=== PATIENT | female | born 1970 | race Caucasian/White ===

== ENCOUNTER 2020-12-04 10:11 | Emergency (ER) | payer OTHER, SELFPAY ==
[2020-12-04 10:24] VITALS: BP 159/91; PULSE 79; RESP 16; TEMP 35.8; O2SAT 96; BMI 28.3
--- NOTE | 2020-12-04 10:41 | ED_ITS ---
HPI - General Adult General Chief complaint: General Medical <MAGDA Dunbar - Last Filed: 12/04/20 11:27> Stated complaint: facial swelling <MAGDA Dunbar - Last Filed: 12/04/20 11:27> Time Seen by Provider: 12/04/20 10:41 <MAGDA Dunbar Last Filed: 12/04/20 11:27> Source: patient <MAGDA Dunbar Last Filed: 12/04/20 11:27> Mode of arrival: ambulatory <MAGDA Dunbar Last Filed: 12/04/20 11:27> Limitations: no limitations <MAGDA Dunbar Last Filed: 12/04/20 11:27> History of Present Illness HPI narrative: 50 y/o female presenting with left lower dental pain and facial swelling that started 2 days ago. She was seen by her dentist yesterday. She states she had x-rays done that did not show any infection. She was started on Amoxicillin and told to come back to the dental office in 1 week. She took 2 doses of her Amoxicillin and feels that the left jaw swelling is worsened today. She is able to eat and drink. She denies throat swelling or difficulty swallowing. No fevers at home. <MAGDA Dunbar - Last Filed: 12/04/20 11:27> MD complaint: dental pain <MAGDA Dunbar - Last Filed: 12/04/20 11:27> Onset (ago): day(s) (2) <MAGDA Dunbar - Last Filed: 12/04/20 11:27> Location: face <MAGDA Dunbar Last Filed: 12/04/20 11:27> Radiation: other (left ear) <MAGDA Dunbar Last Filed: 12/04/20 11:27> Severity: moderate <MAGDA Dunbar Last Filed: 12/04/20 11:27> Severity scale (1-10): 6 <MAGDA Dunbar Last Filed: 12/04/20 11:27> Quality: aching <MAGDA Dunbar Last Filed: 12/04/20 11:27> Pain Consistency: constant <MAGDA Dunbar Last Filed: 12/04/20 11:27> Relieving factors: cold therapy and medication <MAGDA Dunbar Last Filed: 12/04/20 11:27> Exacerbating factors: eating <MAGDA Dunbar Last Filed: 12/04/20 11:27> Associated symptoms: denies other symptoms <MAGDA Dunbar Last Filed: 12/04/20 11:27> Treatments prior to arrival: NSAID <MAGDA Dunbar Last Filed: 12/04/20 11:27> Related Data Home medications: Previous Rx's Medication Instructions Recorded clindamycin HCl 300 mg PO Q6H 7 Days #28 cap 12/04/20 ibuprofen 600 mg PO Q8H PRN #20 tab 12/04/20 <MAGDA Dunbar Last Filed: 12/04/20 11:27> Allergies/adverse reactions: Allergies Allergy/AdvReac Type Severity Reaction Status Date / Time No Known Allergies Allergy Verified 12/04/20 10:24 <MAGDA Dunbar Last Filed: 12/04/20 11:27> Review of Systems Review of Systems: Constitutional: No Fever, No Chills ENT/Mouth: No sore throat, No Rhinorrhea, No Swallowing Difficulty, +facial swelling, +dental pain Eyes: No Eye Pain, No Swelling, No Redness Cardiovascular: No Chest Pain, No SOB Respiratory: No Cough, No Sputum Gastrointestinal: No Nausea, No Vomiting, No Diarrhea, No abdominal Pain Musculoskeletal: No joint pain, No Myalgias Neuro: No Weakness, No Numbness, No Dizziness, + Headache Psych: No Anxiety/Panic, No Depression Heme/Lymph: No Bruising, + Lymphadenopathy <MAGDA Dunbar Last Filed: 12/04/20 11:27> [facility] Past Medical History Attestation statement: The following information was validated with the patient. <MAGDA Dunbar Last Filed: 12/04/20 11:27> Social History Social History: Social History Smoked in Last 30 Days: Yes Use of substances other than those prescribed or required for medical reasons: No Advance Directives: No Advance Directives Information Provided: Yes <MAGDA Dunbar Last Filed: 12/04/20 11:27> Physical Exam Vital Signs: Vital Signs: Last Vital Signs Temp 96.5 F L 12/04/20 10:24 Pulse 79 12/04/20 10:24 Resp 16 12/04/20 10:24 BP 159/91 H 12/04/20 10:24 Pulse Ox 96 12/04/20 10:24 Body Mass Index 28.3 Appearance: Alert. Oriented X3. No acute distress. HEENT: mild left mandibular facial swelling without external erythema, no trismus. mild left lower posterior molar tenderness without palpable abscess. moderate submadibular LAD on left. Normal left EAC and TM. anterior neck is supple. CVS: Normal heart rate and rhythm. Pulses normal. Respiratory: No respiratory distress. Skin: Skin warm and dry. Normal skin color. Normal skin turgor. No rashes. Extremities: atraumatic, no edmea Neuro: Oriented X 3. No motor deficit. No sensory deficit. <MAGDA Dunbar - Last Filed: 12/04/20 11:27> Vital Signs: Last Vital Signs Temp 96.5 F L 12/04/20 10:24 Pulse 79 12/04/20 10:24 Resp 16 12/04/20 10:24 BP 159/91 H 12/04/20 10:24 Pulse Ox 96 12/04/20 10:24 Body Mass Index 28.3 <Prabhu Burdick MD - Last Filed: 12/11/20 07:52> Course Course Course Narrative: 50 y/o female presenting with left lower dental pain associated with left sided facial swelling. Overall it is mild although she reports some increase since yesterday. She has only taken 2 doses of Amoxicillin prior to presentation. No appreciable abscess on exam. Low suspicion for Sanjay's, no recent dental extractions, no throat swelling, appears non-toxic on exam. Will plan to change abx to Clindamycin and have her follow up with her dentist within next 48 hours. Advised to return to ER if swelling worsens or if she has difficulty eating or swallowing. Stable for d/c. <MAGDA Dunbar - Last Filed: 12/04/20 11:27> I have reviewed the chart <Prabhu Burdick MD - Last Filed: 12/11/20 07:52> Critical Care Time Critical Care Time Critical Care Time: No <MAGDA Dunbar Last Filed: 12/04/20 11:27> Discharge Plan Discharge Clinical Impression: Pain, dental <MAGDA Dunbar Last Filed: 12/04/20 11:27> Patient Disposition: Home, Self-Care <MAGDA Dunbar Last Filed: 12/04/20 11:27> Instructions: Dental Abscess (ED), Toothache (ED) <MAGDA Dunbar Last Filed: 12/04/20 11:27> Additional Instructions: Stop taking the previously prescribed antibiotic. Start taking the new antibiotic as directed. Take prescribed Motrin as directed as well. Use ice to the area several times per day. Stop smoking cigarettes - this can slow the healing and make infections worse. Follow up with your dentist in the next 24-48 hours. If you develop increase in swelling or difficulty swallowing come back to the ER right away for further evaluation. <MAGDA Dunbar Last Filed: 12/04/20 11:27> Prescriptions: New clindamycin HCl 300 mg capsule 300 mg PO Q6H 7 Days Qty: 28 RF: 0 ibuprofen 600 mg tablet 600 mg PO Q8H PRN (Reason: fever or pain) Qty: 20 RF: 0 <MAGDA Dunbar - Last Filed: 12/04/20 11:27> Interventions: ED Discharge Assessment Last Done: 12/04/20 10:58 <MAGDA Dunbar Last Filed: 12/04/20 11:27> Discharge Date/Time: 12/04/20 10:59 <MAGDA Dunbar Last Filed: 12/04/20 11:27> Print Language: Georgian <MAGDA Dunbar Last Filed: 12/04/20 11:27>
== END 2020-12-04 10:59 | disposition home or self-care (01) ==
LOC: HO.ED 10:46
PROVIDERS: Emergency Provider Emergency Medicine; PCP Internal Medicine
DX: K02.9 Dental caries, unspecified (principal)
CPT/HCPCS: 99283